=== PATIENT | female | born 1975 | race Caucasian/White ===

== ENCOUNTER → 2017-04-23 | Outpatient (CLI) | payer BC, OTHER ==
[~2017-04-23] MED LIST: /CARB4TA; ACETGRA; KEPPRA; LEVO25TABR; PLAV75TA2; TEGRETOL XR
[2017-04-23 12:39] LABS: MEAN CORPUSCULAR HEMOGLOBIN 31.3 pg (27.0-33.0); MEAN CORPUSCULAR HGB CONC 34.5 g/dl (32.0-36.5); MEAN CORPUSCULAR VOLUME 90.8 fl (80.0-96.0); RED CELL DISTRIBUTION WIDTH 12.3 % (11.5-14.5); WHITE BLOOD COUNT 7.9 K/mm3 (4.0-10.0)
[2017-04-23 13:20] LABS: ANION GAP 7 MEQ/L (8-16); BLOOD UREA NITROGEN 14 MG/DL (7-18); CALCIUM LEVEL 8.5 MG/DL (8.5-10.1); CARBON DIOXIDE LEVEL 27 MEQ/L (21-32); CHLORIDE LEVEL 104 MEQ/L (98-107); CREATININE FOR GFR 0.67 MG/DL (0.55-1.02); GLOMERULAR FILTRATION RATE > 60.0 (>58); GLUCOSE, FASTING 79 MG/DL (70-105); MAGNESIUM LEVEL 2.1 MG/DL (1.8-2.4); POTASSIUM SERUM 4.2 MEQ/L (3.5-5.1); SODIUM LEVEL 138 MEQ/L (136-145)
== END ==
LOC: M LAB 11:32
PROVIDERS: ATTEND Physician Assistant
DX: I71.2 Thoracic aortic aneurysm, without rupture (principal); R00.2 Palpitations; R19.7 Diarrhea, unspecified

== ENCOUNTER → 2017-07-05 | Outpatient (CLI) | payer BC, OTHER ==
[2017-07-05 18:55] LABS: ANION GAP 8 MEQ/L (8-16); BLOOD UREA NITROGEN 11 MG/DL (7-18); CALCIUM LEVEL 8.7 MG/DL (8.5-10.1); CARBON DIOXIDE LEVEL 27 MEQ/L (21-32); CHLORIDE LEVEL 106 MEQ/L (98-107); CREATININE FOR GFR 0.66 MG/DL (0.55-1.02); GLOMERULAR FILTRATION RATE > 60.0 (>58); GLUCOSE, FASTING 72 MG/DL (70-105); POTASSIUM SERUM 4.2 MEQ/L (3.5-5.1); SODIUM LEVEL 141 MEQ/L (136-145)
== END ==
LOC: M LRY 14:39
PROVIDERS: ATTEND Nurse Practitioner Family
DX: H81.49 Vertigo of central origin, unspecified ear (principal)

== ENCOUNTER → 2018-02-18 | Outpatient (CLI) | payer BC, OTHER | LOC: M WUC 14:32 | DX: J20.9 Acute bronchitis, unspecified (principal) | CPT/HCPCS: 71046 ==

== ENCOUNTER → 2018-02-19 | Outpatient (CLI) | payer BC, OTHER ==
[2018-02-19 18:43] LABS: BASO # 0.1 10^3/uL (0.0-0.2); EOS # 0.1 10^3/uL (0.0-0.50); EOS % 1.6 % (0.0-3.0); HEMATOCRIT 40.3 % (36.0-47.0); HEMOGLOBIN 13.5 g/dl (12.0-15.5); IMMATURE GRANULOCYTE % 0.4 % (0-3.0); LYMPH # 1.7 10^3/uL (1.5-4.5); LYMPH % 25.8 % (24.0-44.0); MEAN CORPUSCULAR HEMOGLOBIN 30.8 pg (27.0-33.0); MEAN CORPUSCULAR HGB CONC 33.5 g/dl (32.0-36.5); MONO # 0.5 10^3/uL (0.0-0.8); MONO % 7.8 % (0.0-5.0); NEUTROPHILS # 4.2 10^3/uL (1.8-7.7); NEUTROPHILS % 63.4 % (36.0-66.0); PLATELET COUNT, AUTOMATED 299 10^3/uL (150-450); RED BLOOD COUNT 4.38 10^6/uL (4.00-5.40); WHITE BLOOD COUNT 6.7 10^3/uL (4.0-10.0)
[2018-02-19 19:04] LABS: ALBUMIN 3.7 GM/DL (3.2-5.2); ALBUMIN/GLOBULIN RATIO 1.37 (1.00-1.93); ALKALINE PHOSPHATASE 59 U/L (45-117); ALT/SGPT 20 U/L (12-78); ANION GAP 4 MEQ/L (8-16); AST/SGOT 13 U/L (7-37); BILIRUBIN,TOTAL 0.4 MG/DL (0.2-1.0); BLOOD UREA NITROGEN 14 MG/DL (7-18); CALCIUM LEVEL 8.4 MG/DL (8.5-10.1); CARBON DIOXIDE LEVEL 29 MEQ/L (21-32); CHLORIDE LEVEL 108 MEQ/L (98-107); CHOLESTEROL LEVEL 211 MG/DL (<200); CHOLESTEROL RISK RATIO 3.246 (<5); CREATININE FOR GFR 0.68 MG/DL (0.55-1.30); FREE T3 2.8 PG/ML (2.2-4.0); FREE T4 0.66 NG/DL (0.76-1.46); GLOMERULAR FILTRATION RATE > 60.0 (>58); GLUCOSE, FASTING 83 MG/DL (70-100); HDL CHOLESTEROL 65 MG/DL (>40); LDL CHOLESTEROL 135.4 MG/DL (<100); NON-HDL-C 146 MG/DL; POTASSIUM SERUM 4.7 MEQ/L (3.5-5.1); SODIUM LEVEL 141 MEQ/L (136-145); TOTAL PROTEIN 6.4 GM/DL (6.4-8.2); TRIGLYCERIDES LEVEL 53 MG/DL (<150)
== END ==
LOC: M LRY 09:52
DX: E05.90 Thyrotoxicosis, unspecified without thyrotoxic crisis or storm (principal); I10 Essential (primary) hypertension; E78.4 Other hyperlipidemia
CPT/HCPCS: 84443

== ENCOUNTER → 2018-10-29 | Outpatient (CLI) | payer BC, OTHER | LOC: M WUC 13:17 | DX: M53.84 Other specified dorsopathies, thoracic region (principal); J18.9 Pneumonia, unspecified organism | CPT/HCPCS: 71046 ==

== ENCOUNTER → 2019-04-29 | Outpatient (CLI) | payer BC, OTHER ==
[~2019-04-29] MED LIST changes: -/CARB4TA; +TEGR1TAB2
[2019-04-29 19:13] LABS: ALBUMIN 3.5 GM/DL (3.2-5.2); ALT/SGPT 18 U/L (12-78); BILIRUBIN,TOTAL 0.4 MG/DL (0.2-1.0); BLOOD UREA NITROGEN 11 MG/DL (7-18); CALCIUM LEVEL 7.9 MG/DL (8.5-10.1); CARBON DIOXIDE LEVEL 29 MEQ/L (21-32); CHLORIDE LEVEL 108 MEQ/L (98-107); CHOLESTEROL LEVEL 227 MG/DL (<200); CHOLESTEROL RISK RATIO 3.546 (<5); GLOMERULAR FILTRATION RATE > 60.0 (>58); GLUCOSE, FASTING 89 MG/DL (70-100); HDL CHOLESTEROL 64 MG/DL (>40); LDL CHOLESTEROL 153 MG/DL (<100); NON-HDL-C 163 MG/DL; POTASSIUM SERUM 4.2 MEQ/L (3.5-5.1); SODIUM LEVEL 141 MEQ/L (136-145); TOTAL PROTEIN 6.5 GM/DL (6.4-8.2); TRIGLYCERIDES LEVEL 49 MG/DL (<150)
[2019-04-29 19:23] LABS: BASO # 0.1 10^3/uL (0.0-0.2); EOS # 0.1 10^3/uL (0.0-0.50); EOS % 1.8 % (0.0-3.0); HEMATOCRIT 41.3 % (36.0-47.0); HEMOGLOBIN 13.8 g/dl (12.0-15.5); LYMPH % 32.4 % (24.0-44.0); MEAN CORPUSCULAR HEMOGLOBIN 30.8 pg (27.0-33.0); MEAN CORPUSCULAR HGB CONC 33.4 g/dl (32.0-36.5); MEAN CORPUSCULAR VOLUME 92.2 fl (80.0-96.0); MONO # 0.4 10^3/uL (0.0-0.8); MONO % 7.1 % (0.0-5.0); NEUTROPHILS # 3.5 10^3/uL (1.8-7.7); NEUTROPHILS % 57.4 % (36.0-66.0); PLATELET COUNT, AUTOMATED 358 10^3/uL (150-450); RED BLOOD COUNT 4.48 10^6/uL (4.00-5.40); WHITE BLOOD COUNT 6.1 10^3/uL (4.0-10.0)
== END ==
LOC: M LRY 09:44
PROVIDERS: ATTEND Nurse Practitioner Family
DX: I10 Essential (primary) hypertension (principal); E78.49 Other hyperlipidemia

== ENCOUNTER → 2020-01-15 | Outpatient (REF) | payer OTHER | LOC: M SFHCLERA 10:16 | PROVIDERS: ATTEND Nurse Practitioner Family | DX: R53.81 Other malaise (principal) ==

== ENCOUNTER 2020-05-22 11:18 | Observation (INO) | payer BC, OTHER ==
[~2020-05-22] VITALS: Ht 162.6 cm; Wt 84.2 kg
[2020-05-22] MEDS ORDERED: LISI30TA4 PO (11:33)
[2020-05-22] MEDS ORDERED: METO1TAB32 PO (11:33)
--- NOTE | 2020-05-22 11:53 | REP ---
Clinical: Symptoms consistent with acute stroke . Comparison: 08/24/2009 . Findings: The ventricles, sulci, and cisterns are normal in position and appearance. Crook-white differentiation is maintained. No acute intracranial hemorrhage, mass/mass effect, pathology or trauma/injury. No evidence for acute infarction. No extra-axial fluid collection. Calvarium is intact. Paranasal sinuses and mastoid air cells are clear. Impression: Normal noncontrast head CT. No evidence for acute intracranial pathology or trauma/injury. Electronically Signed by Thanh Cast MD 05/22/2020 11:45 A
[2020-05-22 12:03] LABS: BASO # 0.1 10^3/uL (0.0-0.2); EOS % 0.3 % (0.0-3.0); HEMATOCRIT 40.5 % (36.0-47.0); HEMOGLOBIN 13.8 g/dl (12.0-15.5); LYMPH # 2.4 10^3/uL (1.5-5.0); MEAN CORPUSCULAR HEMOGLOBIN 31.5 pg (27.0-33.0); MEAN CORPUSCULAR HGB CONC 34.1 g/dl (32.0-36.5); MEAN CORPUSCULAR VOLUME 92.5 fl (80.0-96.0); MONO # 0.5 10^3/uL (0.0-0.8); MONO % 6.9 % (0.0-5.0); NEUTROPHILS # 4.7 10^3/uL (1.5-8.5); NEUTROPHILS % 60.3 % (36.0-66.0); PLATELET COUNT, AUTOMATED 307 10^3/uL (150-450); RED BLOOD COUNT 4.38 10^6/uL (4.00-5.40); WHITE BLOOD COUNT 7.8 10^3/uL (4.0-10.0)
--- NOTE | 2020-05-22 12:05 | REP ---
Portable chest x-ray: Single view. History: CVA. Comparison chest x-ray: October 29, 2018. Findings: Monitoring electrodes are seen. The lungs are well inflated and clear. The pleural angles are sharp. Heart size is normal. The aorta somewhat tortuous. Pulmonary vasculature is not increased. Impression: No active disease. Electronically Signed by Surya Sommer MD 05/22/2020 11:57 A
[2020-05-22 12:15] LABS: INR 1.09; PROTHROMBIN TIME 13.8 SECONDS (11.8-14.0)
[2020-05-22 12:16] LABS: PARTIAL THROMBOPLASTIN TIME 28.2 SECONDS (25.0-38.4)
[2020-05-22 12:29] LABS: BLOOD UREA NITROGEN 13 MG/DL (7-18); CALCIUM LEVEL 9.3 MG/DL (8.5-10.1); CARBON DIOXIDE LEVEL 26 MEQ/L (21-32); CHLORIDE LEVEL 106 MEQ/L (98-107); CK-MB VALUE MASS 1.2 NG/ML (<3.6); CPK CREATINE PHOSPHOKINASE 88 U/L (26-192); CREATININE FOR GFR 0.69 MG/DL (0.55-1.30); GLOMERULAR FILTRATION RATE > 60.0 (>58); GLUCOSE, FASTING 91 MG/DL (70-100); MB/CK RELATIVE INDEX 1.36 (< OR =4); POTASSIUM SERUM 4.2 MEQ/L (3.5-5.1); SODIUM LEVEL 137 MEQ/L (136-145); TROPONIN I < 0.02 NG/ML (< 0.10)
[2020-05-22 12:51] LABS: ALBUMIN 3.9 GM/DL (3.2-5.2); ALT/SGPT 23 U/L (12-78); BILIRUBIN,DIRECT 0.2 MG/DL (0.0-0.2); BILIRUBIN,TOTAL 0.7 MG/DL (0.2-1.0)
[2020-05-22] MEDS ORDERED: CLOP75TA2 PO (13:09)
[2020-05-22 14:57] LABS: CHOLESTEROL LEVEL 212 MG/DL (<200); CHOLESTEROL RISK RATIO 2.554 (<5); HDL CHOLESTEROL 83 MG/DL (>40); LDL CHOLESTEROL 115 MG/DL (<100); NON-HDL-C 129 MG/DL; TRIGLYCERIDES LEVEL 70 MG/DL (<150)
[2020-05-22] MEDS ORDERED: ATORVASTATIN 20 MG TAB PO ONE (15:00)
--- NOTE | 2020-05-22 16:15 | HPEPDOC ---
General Date of Admission 05/22/20 Date of Service: May 22, 2020 Chief Complaint The patient is a 44-year-old female admitted with a reason for visit of Numbness. Source: Patient History of Present Illness 44 year old female with h/o CVA in 2003, CAD s/p angioplasty, seizure disorder now off meds for 6 years, hypertension, graves disease, thoracic AA, celiac artery dissection s/p stents presents from home with numbness of her left side of face, left hand, and left leg. SHe woke up this am was ok. First noticed numbness of the left ear about 5 am half an hour after waking up which then spread to the forehead, cheek and chin then noticed numbness of the left palm and the fingers the numbness spread to the left whitley and left foot. there was no associated weakness. on my interview she says the sensation is slowly coming back she could now feel her cheek and forehead and her fingers and the whitley but not fully resolved. She denied any vision changes or any auditory changes, denies any headache. Denied any chest pain. She was admitted for TIA. Home Medications Scheduled Clopidogrel Bisulfate (Clopidogrel) 75 Mg Tablet, 75 MG PO DAILY, (Reported) Lisinopril (Lisinopril) 30 Mg Tablet, 30 MG PO QHS, (Reported) Metoprolol Succinate (Metoprolol Succinate) 25 Mg Tab.er.24h, 25 MG PO QHS, (Reported) Allergies Coded Allergies: NSAIDS (Non-Steroidal Anti-Inflamma (Verified Allergy, Severe, DIFFICULTY BREATHING AND THROAT SWELLING, 05/22/20) Penicillins (Verified Allergy, Severe, DIFFICULTY BREATHING AND THROAT SWELLING, 05/22/20) acetazolamide (Verified Allergy, Severe, DIFFICULTY BREATHING AND THROAT SWELLING, 05/22/20) aspirin (Verified Allergy, Severe, DIFFICULTY BREATHING AND THROAT SW ELLING, 05/22/20) carisoprodol (Verified Allergy, Mild, HIVES AND NAUSEA, 05/22/20) methocarbamol (Verified Allergy, Mild, HIVES AND NAUSEA, 05/22/20) hydromorphone (Verified Adverse Reaction, Intermediate, SEIZURE, 05/22/20) nicotine (Verified Adverse Reaction, Mild, BLISTERS ON SKIN, 05/22/20) FROM NICOTINE PATCH Past Medical History Medical History Hypertension CAD s/p angioplasty no stents Asthma 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 (4.3 FROM 04/19/19 CT) OBESITY PEPTIC ULCER DISEASE WITH EPISODES OF HEMATEMESIS YEARS AGO, HYPERCHOLESTEROLEMIA, MENINGITIS-1999, ANXIETY, DEPRESSION ANEMIA Hyperthyroidism s/p removal of thyroid nodule Surgical History colposcopies for cervical dysplasias , total hystrectomy with unilateral oophorectomy for cervical cancer spreading to uterus , thyroid surgery, lymph node removal from right arm, cardiac cath and angioplasty 2003 COLONOSCOPY WITH POLYP RESECTION 2014, CELIAC ARTERY DISSECTION WITH MULTIPLE STENT PLACEMENT Family History Significant Family History: Other (Stroke in mother) Social History * Smoker: current smoker Alcohol: occationally Drugs: denies A-FIB/CHADSVASC A-FIB History Current/History of A-Fib/PAF?: No Review of Systems Constitutional: Denies: Chills, Fever, Night Sweats Eyes: Denies: Pain, Vision change ENT: Denies: Head Aches, Ear Pain, Dysphagia Skin: Reports: Lesions (resolving blisters in the right foot); Denies: Rash, Breakdown Pulmonary: Denies: Dyspnea, Cough Cardiovascular: Denies: Chest Pain, Palpitations, Orthopnea, Paroxysmal Noc. Dyspnea, Lt Headedness Gastrointestinal: Denies: Nausea, Vomiting, Abdominal Pain, Diarrhea Genitourinary: Denies: Dysuria, Frequency, Incontinence, Retention Musculoskeletal: Denies: Neck Pain, Back Pain, Joint Pain, Muscle Pain, Spasms Neurological: Reports: Numbness (of the left side of the face, left hand and left whitley and left foot) Psych: Reports: Mood Normal; Denies: Depression, Memory Issues Physical Examination General Exam: Positive: Alert, Cooperative, No Acute Distress Eye Exam: Positive: PERRLA, Conjunctiva & lids normal, EOMI; Negative: Sclera icteric ENT Exam: Positive: Atraumatic, Mucous membr. moist/pink, Pharynx Normal Neck Exam: Positive: Supple; Negative: JVD, thyromegaly Chest Exam: Positive: Clear to auscultation, Normal air movement Heart Exam: Positive: Rate Normal, Regular Rhythm, Normal S1, Normal S2; Negative: Murmurs, Rubs Telemetry: Positive: No significant arrhythmia Abdomen Exam: Positive: Normal bowel sounds, Soft; Negative: Tenderness, Hepatospenomegaly Extremity Exam: Positive: Normal pulses; Negative: Clubbing, Cyanosis, Edema Neuro Exam: Positive: Normal Speech, Strength at 5/5 X4 ext, Normal Tone, Reflexes 2+, Other (decreased sensation to fine touch and pressure on trevor left face, left palm and left whitley and foot.) Psych Exam: Positive: Mental status NL, Mood NL, Oriented x 3 Vital Signs Vital Signs Date Time Temp Pulse Resp B/P (MAP) Pulse Ox O2 Delivery O2 Flow Rate FiO2 05/22/20 13:03 69 16 99 Room Air 05/22/20 13:00 128/79 (95) 05/22/20 11:19 98.6 Laboratory Data Labs 24H Laboratory Tests 2 05/22/20 11:50: Immature Granulocyte % (Auto) 0.5, Neutrophils (%) (Auto) 60.3, Lymphocytes (%) (Auto) 31.0, Monocytes (%) (Auto) 6.9H, Eosinophils (%) (Auto) 0.3, Basophils ( %) (Auto) 1.0, Neutrophils # (Auto) 4.7, Lymphocytes # (Auto) 2.4, Monocytes # (Auto) 0.5, Eosinophils # (Auto) 0.0, Basophils # (Auto) 0.1, Nucleated Red Blood Cells % (auto) 0.0, Prothrombin Time 13.8, Prothromb Time International Ratio 1.09, Activated Partial Thromboplast Time 28.2, Anion Gap 5L, Glomerular Filtration Rate > 60.0, Calcium Level 9.3, Total Bilirubin 0.7, Direct Bilirubin 0.2, Aspartate Amino Transf (AST/SGOT) 14, Alanine Aminotransferase (ALT/SGPT) 23, Alkaline Phosphatase 53, Total Creatine Kinase 88, Creatine Kinase MB 1.2, Creatine Kinase MB Relative Index 1.36, Troponin I < 0.02, Total Protein 7.0, Albumin 3.9, Albumin/Globulin Ratio 1.3 CBC/BMP Laboratory Tests 05/22/20 11:50 Assessment/Plan 44 year old female with h/o CVA in 2003, CAD s/p angioplasty, seizure disorder now off meds for 6 years, hypertension, graves disease, thoracic AA, celiac artery dissection s/p stents presents from home with numbness of her left side of face, left hand, and left leg. She woke up this am was ok. First noticed numbness of the left ear about 5 am half an hour after waking up which then spread to the forehead, cheek and chin then noticed numbness of the left palm and the fingers the numbness spread to the left whitley and left foot. there was no associated weakness. She was admitted for TIA. TIA CT head negative for acute changes will get MRI and MRA Lipid panel continue plavix, start statin Hypertension Bp controlled continue lisinopril and metoprolol CAD continue plavix, betablocker, started statin Smoking cessation discussed. Plan / VTE VTE Prophylaxis Ordered?: Yes RILEY HERRERA MD May 22, 2020 13:24
--- NOTE | 2020-05-22 16:25 | REP ---
MRI brain without contrast: History: TIA. Comparison study: Comparison CT study of the brain is from earlier on this date. Technique: Axial and sagittal imaging planes are utilized for T1 and T2-weighted scans. Sequences include spin-echo, fast spin echo, FLAIR, and diffusion weighted sequences. MRI findings: No bony calvarial lesion is seen. Craniocervical junction and upper cervical cord are normal in appearance. There is no MR evidence of significant paranasal sinus disease. No intraorbital abnormality is seen. The lateral, third, and fourth ventricles are normal in size and position. Croko-white differentiation pattern is intact above and below the tentorium. There is no evidence of intracranial hemorrhage. No mass, infarction, extra-axial fluid collection or midline shift is seen. No abnormal white matter lesion is seen. Impression: Negative noncontrast brain MRI study. Electronically Signed by Surya Sommer MD 05/22/2020 04:16 P
--- NOTE | 2020-05-22 16:29 | REP ---
MR angiography the brain without contrast: History: TIA. Comparison CT angiography images are from August 24, 2009. Technique: 3-D [id number] MR angiography of the brain is acquired in the usual fashion and maximal intensity projection images were generated in rotational format about the vertical and horizontal axes. In addition, source axial T1-weighted images are viewed in cine mode. MR angiographic findings: The distal vertebral arteries are patent, left larger than right unchanged. Basilar artery is a little tortuous but widely patent. The posterior cerebral and superior cerebellar vessels are normal and symmetric. The distal internal carotid arteries are unremarkable. Anterior and middle cerebral arteries appear intact. The A1 segment on the right is hypoplastic. This is unchanged from the comparison CT angiography to 1009. The right anterior cerebral is fed from the left A1 segment via the patent anterior communicator. There is no visible [place] aneurysm or arteriovenous malformation. 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 Otherwise unremarkable MR angiography the brain. No change from comparison CT angiography August 24, 2009. Electronically Signed by Surya Sommer MD 05/22/2020 04:20 P
[2020-05-22 18:44] VITALS: BP 140/82
[2020-05-22 20:00] VITALS: BP 128/78
[2020-05-22 20:59] VITALS: BP 123/73
[2020-05-22] MEDS ORDERED: ATORVASTATIN 20 MG TAB PO SCH (21:00)
[2020-05-22] MEDS ORDERED: lisinopriL 10 MG TAB PO SCH (21:00)
[2020-05-22] MEDS ORDERED: METOPROLOL SUCC *XL* 25MG TAB (TopROL *XL*) PO SCH (21:00)
[2020-05-23 04:00] VITALS: BP 128/80
[2020-05-23 05:08] LABS: BASO # 0.1 10^3/uL (0.0-0.2); BASO % 0.7 % (0.0-1.0); EOS # 0.1 10^3/uL (0.0-0.5); EOS % 1.7 % (0.0-3.0); HEMOGLOBIN 13.9 g/dl (12.0-15.5); LYMPH # 2.2 10^3/uL (1.5-5.0); LYMPH % 28.7 % (24.0-44.0); MEAN CORPUSCULAR HEMOGLOBIN 31.7 pg (27.0-33.0); MEAN CORPUSCULAR HGB CONC 34.8 g/dl (32.0-36.5); MEAN CORPUSCULAR VOLUME 91.3 fl (80.0-96.0); MONO # 0.7 10^3/uL (0.0-0.8); MONO % 9.7 % (0.0-5.0); NEUTROPHILS # 4.5 10^3/uL (1.5-8.5); NEUTROPHILS % 58.5 % (36.0-66.0); PLATELET COUNT, AUTOMATED 291 10^3/uL (150-450); RED BLOOD COUNT 4.38 10^6/uL (4.00-5.40); WHITE BLOOD COUNT 7.7 10^3/uL (4.0-10.0)
[2020-05-23 05:29] LABS: BLOOD UREA NITROGEN 14 MG/DL (7-18); CALCIUM LEVEL 8.9 MG/DL (8.5-10.1); CARBON DIOXIDE LEVEL 26 MEQ/L (21-32); CHLORIDE LEVEL 107 MEQ/L (98-107); CREATININE FOR GFR 0.66 MG/DL (0.55-1.30); GLOMERULAR FILTRATION RATE > 60.0 (>58); GLUCOSE, FASTING 97 MG/DL (70-100); POTASSIUM SERUM 4.4 MEQ/L (3.5-5.1); SODIUM LEVEL 137 MEQ/L (136-145)
--- NOTE | 2020-05-23 06:20 | ECGEPIP ---
[facility] - ED Test Date: 2020-05-22 Pat Name: FRIDA CAVANAUGH Department: Room: - Gender: Female Phone Banker: ivan : 1975 Requested By: MUNIRA Lomas Order Number: [id number] Reading MD: Jairon Marie Measurements Intervals [place] Rate: 72 P: -19 DC: 155 QRS: -3 QRSD: 81 T: -1 QT: 384 QTc: 421 Interpretive Statements SINUS RHYTHM NSTTW ABNORMALITIES NO PRIORS FOR COMPARISON Electronically Signed on 05-23-2020 6:19:31 EDT by Jairon Marie
[2020-05-23] MEDS ORDERED: ATOR40TA75 PO (06:58)
[2020-05-23] MEDS ORDERED: CLOPIDOGREL 75 MG TAB PO SCH (09:00)
[2020-05-23] MEDS ORDERED: ENOXAPARIN 40MG/0.4ML SYRINGE (J1650 PER 10MG) SC SCH (09:00)
--- NOTE | 2020-05-23 10:52 | DS.PDOC ---
Discharge Summary General Date of Admission May 22, 2020 at 11:19 Date of Discharge 05/23/2020 Discharge Summary PROCEDURES PERFORMED DURING STAY: [None]. ADMITTING DIAGNOSES / DISCHARGE DIAGNOSES: Left-sided facial / hand / leg numbness - likely 2/2 TIA HTN CAD Nicotine dependence DVT prophylaxis COMPLICATIONS/CHIEF COMPLAINT: Numbness of L face HISTORY OF PRESENT ILLNESS: Patient is a 44-year-old female with a PMHx of CVA (2003), HTN, CAD s/p angioplasty, Seizure disorder (off medications for 6 years), Graves disease, Thoracic AA (Follows with Dr. Day at [facility]), Celiac artery dissection (s/p stents), who presented to the ER with numbness of her face, left hand and left leg. Upon arrival to emergency room, patient reported this was improving. Patient was admitted to hospitalist service for further evaluation and treatment for suspected CVA/TIA. HOSPITAL COURSE: Left-sided facial / hand / leg numbness - likely 2/2 TIA - Patient has had full resolution of her symptoms - Physical without any focal neurologic deficits - CT head 05/22: Normal noncontrast head CT. No evidence for acute intracranial pathology or trauma/injury. 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 Otherwise unremarkable MR angiography the brain. No change from comparison CT angiography August 24, 2009. - MRI brain 05/22: Negative noncontrast brain MRI study. - Patient has been advised to continue with aspirin, Plavix - Atorvastatin has been added; will continue as an outpatient - Patient has been advised to follow-up with her primary care provider and neurology within 7 days HTN - BP well controlled - c/w Lisinopril and metoprolol CAD - c/w Plavix, Metoprolol and ASA Nicotine dependence - Advised smoking cessation DVT prophylaxis - c/w Lovenox while inpatient DISCHARGE MEDICATIONS: Please see below. ALLERGIES: Please see below. PHYSICAL EXAMINATION ON DISCHARGE: Vitals (See below) General: Lying in bed, appears comfortable, AAOx3 HEENT: NC, AT CVS: +S1S2 Lungs: Fair air entry b/l, -w/r/r Abdomen: Soft, ND, NT Extremities: No evidence of edema, - Calf tenderness LABORATORY DATA: Please see below. ACTIVITY: [As tolerated]. DISCHARGE PLAN: Follow-up with primary care provider and neurology within 7 days Remain compliant with treatment plan and medications Return to the ER if you experience any problems DISPOSITION: Home, Self-Care. DISCHARGE CONDITION: [Stable]. TIME SPENT ON DISCHARGE: 20 minutes. Vital Signs/I&Os Vital Signs Date Time Temp Pulse Resp B/P (MAP) Pulse Ox O2 Delivery O2 Flow Rate FiO2 05/23/20 04:00 97.4 65 18 128/80 (96) 96 Room Air I&O- Last 24 Hours up to 6 AM 05/23/20 06:00 Intake Total 910 ml Balance 910 ml Laboratory Data Labs 24H Laboratory Tests 2 05/22/20 11:50: Immature Granulocyte % (Auto) 0.5, Neutrophils (%) (Auto) 60.3, Lymphocytes (%) (Auto) 31.0, Monocytes (%) (Auto) 6.9H, Eosinophils (%) (Auto) 0.3, Basophils (%) (Auto) 1.0, Neutrophils # (Auto) 4.7, Lymphocytes # (Auto) 2.4, Monocytes # (Auto) 0.5, Eosinophils # (Auto) 0.0, Basophils # (Auto) 0.1, Nucleated Red Blood Cells % (auto) 0.0, Prothrombin Time 13.8, Prothromb Time International Ratio 1.09, Activated Partial Thromboplast Time 28.2, Anion Gap 5L, Glomerular Filtration Rate > 60.0, Calcium Level 9.3, Total Bilirubin 0.7, Direct Bilirubin 0.2, Aspartate Amino Transf (AST/SGOT) 14, Alanine Aminotransferase (ALT/SGPT) 23, Alkaline Phosphatase 53, Total Creatine Kinase 88, Creatine Kinase MB 1.2, Creatine Kinase MB Relative Index 1.36, Troponin I < 0.02, Total Protein 7.0, Albumin 3.9, Albumin/Globulin Ratio 1.3, Triglycerides Level 70, Total Cholesterol 212H, LDL Cholesterol 115H, Non-HDL Cholesterol (LDL + VLDL) 129, Total HDL Cholesterol 83, Cholesterol/HDL Ratio 2.554 05/23/20 01:28: Bedside Glucose (Misc Panel) 94 05/23/20 04:38: Immature Granulocyte % (Auto) 0.7, Neutrophils (%) (Auto) 58.5, Lymphocytes (%) (Auto) 28.7, Monocytes (%) (Auto) 9.7H, Eosinophils (%) (Auto) 1.7, Basophils (%) (Auto) 0.7, Neutrophils # (Auto) 4.5, Lymphocytes # (Auto) 2.2, Monocytes # (Auto) 0.7, Eosinophils # (Auto) 0.1, Basophils # (Auto) 0.1, Nucleated Red Blood Cells % (auto) 0.0, Anion Gap 4L, Glomerular Filtration Rate > 60.0, Calcium Level 8.9 CBC/BMP Laboratory Tests 05/22/20 11:50 05/23/20 04:38 FSBS Laboratory Tests Test 05/23/20 01:28 Range/Units Bedside Glucose (Misc Panel) 94 70-105 MG/DL Discharge Medications Scheduled Atorvastatin Calcium (Atorvastatin Calcium) 40 Mg Tablet, 1 TAB PO DAILY Clopidogrel Bisulfate (Clopidogrel) 75 Mg Tablet, 75 MG PO DAILY, (Reported) Lisinopril (Lisinopril) 30 Mg Tablet, 30 MG PO QHS, (Reported) Metoprolol Succinate (Metoprolol Succinate) 25 Mg Tab.er.24h, 25 MG PO QHS, (Reported) Allergies Coded Allergies: NSAIDS (Non-Steroidal Anti-Inflamma (Verified Allergy, Severe, DIFFICULTY BREATHING AND THROAT SWELLING, 05/22/20) Penicillins (Verified Allergy, Severe, DIFFICULTY BREATHING AND THROAT SWELLING, 05/22/20) acetazolamide (Verified Allergy, Severe, DIFFICULTY BREATHING AND THROAT SWELLING, 05/22/20) aspirin (Verified Allergy, Severe, DIFFICULTY BREATHING AND THROAT SWELLING, 05/22/20) carisoprodol (Verified Allergy, Mild, HIVES AND NAUSEA, 05/22/20) methocarbamol (Verified Allergy, Mild, HIVES AND NAUSEA, 05/22/20) hydromorphone (Verified Adverse Reaction, Intermediate, SEIZURE, 05/22/20) nicotine (Verified Adverse Reaction, Mild, BLISTERS ON SKIN, 05/22/20) FROM NICOTINE PATCH OMER HALL MD May 23, 2020 10:52
== END 2020-05-23 09:41 | disposition home or self-care (01) ==
LOC: M ED 11:18 → M ED INP 11:19 → ENRESERV 16:14 → M PCU 18:36
PROVIDERS: ADMIT Internal Medicine Nephrology; ATTEND Internal Medicine Nephrology
DX: R20.0 Anesthesia of skin (principal); I11.9 Hypertensive heart disease without heart failure; I25.10 Atherosclerotic heart disease of native coronary artery without angina pectoris; F17.210 Nicotine dependence, cigarettes, uncomplicated; Z86.73 Personal history of transient ischemic attack (TIA), and cerebral infarction without residual deficits; G40.909 Epilepsy, unspecified, not intractable, without status epilepticus; E05.00 Thyrotoxicosis with diffuse goiter without thyrotoxic crisis or storm; I71.2 Thoracic aortic aneurysm, without rupture; I77.79 Dissection of other specified artery; F32.9 Major depressive disorder, single episode, unspecified; F41.9 Anxiety disorder, unspecified; J45.909 Unspecified asthma, uncomplicated; D64.9 Anemia, unspecified; Z85.41 Personal history of malignant neoplasm of cervix uteri; Z86.19 Personal history of other infectious and parasitic diseases; Z79.899 Other long term (current) drug therapy; Z79.02 Long term (current) use of antithrombotics/antiplatelets; Z88.0 Allergy status to penicillin; Z88.1 Allergy status to other antibiotic agents; Z88.8 Allergy status to other drugs, medicaments and biological substances; Z88.5 Allergy status to narcotic agent; Z88.6 Allergy status to analgesic agent; Z82.3 Family history of stroke